=== PATIENT | female | born 1975 | race Caucasian/White ===

== ENCOUNTER 2017-06-07 13:33 | Emergency (ER) | payer OTHER ==
[~2017-06-07] VITALS: Ht 172.7 cm; Wt 108.9 kg
[2017-06-07 13:52] VITALS: BP 137/90
[2017-06-07] MEDS ORDERED: NORTRIPTYLINE H50 M3 PO (13:59)
[2017-06-07] MEDS ORDERED: ZOLOFT100 MG PO (13:59)
[2017-06-07] MEDS ORDERED: SINGULAIR 10 MG10 M1 PO (14:03)
[2017-06-07] MEDS ORDERED: ALBUTEROL2.5 MG/31 INH (14:03)
[2017-06-07] MEDS ORDERED: SYMBICORT160 MCG/4. INH (14:03)
[2017-06-07] MEDS ORDERED: OMEPRAZOLE40 MG PO (14:04)
[2017-06-07] MEDS ORDERED: VENTOLIN HFA 1818 GM INH (14:04)
[2017-06-07] MEDS ORDERED: UNICOMPLEX M TA1 TA1 PO (14:04)
[2017-06-07] MEDS ORDERED: LMTHF-PYRIDOXI1 EACH PO (14:05)
[2017-06-07] MEDS ORDERED: CALCIUM 500 +1 EACH PO (14:05)
[2017-06-07] MEDS ORDERED: VITAMIN D2000 UNIT PO (14:06)
== END 2017-06-07 14:10 | disposition home or self-care (01) ==
LOC: M.ERS 13:33
DX: F41.9 Anxiety disorder, unspecified (principal); F32.9 Major depressive disorder, single episode, unspecified; Z88.0 Allergy status to penicillin; Z88.2 Allergy status to sulfonamides; Z91.048 Other nonmedicinal substance allergy status; Z91.030 Bee allergy status; Z88.8 Allergy status to other drugs, medicaments and biological substances